=== PATIENT | male | born 2000 | race Hispanic/Latino ===

== ENCOUNTER 2025-02-24 15:53 | Emergency (ER) | payer OTHER ==
[~2025-02-24] VITALS: Ht 175.3 cm; Wt 73.9 kg
[2025-02-24] MEDS ORDERED: IBUP-1492 PO (16:23)
[2025-02-24] MEDS ORDERED: ACET-2079 PO (16:23)
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
[2025-02-24] MEDS: HYDROcodone/APAP 5/325 1 TAB TABLET PO SCH (16:52)
[2025-02-24] MEDS: SILVER SULFADIAZINE CREAM 400 GM TP SCH (16:53)
[2025-02-24] MEDS ORDERED: SILV20CR11 TP (17:38)
[2025-02-24 18:19] VITALS: BP 118/76; PULSE 70; RESP 16; TEMP 97.9; O2SAT 99
== END 2025-02-24 18:20 | disposition home or self-care (01) ==
LOC: EDH 15:53
DX: T22.211A Burn of second degree of right forearm, initial encounter (principal); T25.212A Burn of second degree of left ankle, initial encounter; Z79.1 Long term (current) use of non-steroidal anti-inflammatories (NSAID); X08.8XXA Exposure to other specified smoke, fire and flames, initial encounter; Y93.89 Activity, other specified; Y92.89 Other specified places as the place of occurrence of the external cause; Y99.8 Other external cause status
CPT/HCPCS: 99284; 90714; 96372; 90471; 16020; J1885